=== PATIENT | female | born 1995 | race Caucasian/White ===

== ENCOUNTER 2018-05-01 21:13 | Inpatient (IN) | payer OTHER ==
[~2018-05-01] VITALS: Ht 170.2 cm; Wt 70.3 kg
[2018-05-01 21:44] LABS: *BILIRUBIN,URIN NEGATIVE (NEGATIVE); *BLOOD, URINE 1+ (NEGATIVE); *CLARITY,URINE SLIGHTLY CLOUDY (CLEAR); *COLOR,URINE YELLOW (YELLOW); *KETONES,URINE NEGATIVE (NEGATIVE); *PROTEIN,URINE 1+ (NEGATIVE); LEUKOCYTE ESTERASE ,URINE NEGATIVE (NEGATIVE); NITRITE, URINE NEGATIVE (NEGATIVE); UGLUCOSE NEGATIVE (NEGATIVE)
[2018-05-01] MEDS ORDERED: MORPHINE SULFATE 2 MG/1 ML DISP.SYRIN IV ONE (21:45)
[2018-05-01] MEDS ORDERED: MORPHINE SULFATE 4 MG/1 ML DISP.SYRIN ONE (21:49)
[2018-05-01 21:53] LABS: BACTERIA,URINE FEW /HPF (NONE SEEN); SQUAMOUS EPITHELIAL CELL,UR FEW /HPF (NONE SEEN); WBC,URINE 0-3 /HPF (0-3)
[2018-05-01 22:03] LABS: BASOPHILS % (AUTO) 0.4 % (0.0-2.0); EOSINOPHILS # (AUTO) 0.1 K/uL (0.0-0.7); EOSINOPHILS % (AUTO) 0.9 % (0.0-7.0); HEMATOCRIT 34.2 % (31.2-41.9); HEMOGLOBIN 11.8 g/dL (10.9-14.3); LYMPHOCYTES # (AUTO) 1.9 K/uL (20.0-40.0); LYMPHOCYTES % (AUTO) 14.7 % (20.5-51.5); MEAN CORPUSCULAR HEMOGLOBIN 33.2 uug (24.7-32.8); MEAN CORPUSCULAR HGB CONC 35 g/dL (32.3-35.6); MEAN CORPUSCULAR VOLUME 96.2 fL (75.5-95.3); MONOCYTES # (AUTO) 1.2 K/uL (2.0-10.0); MONOCYTES % (AUTO) 9.3 % (0.0-11.0); NEUTROPHILS # (AUTO) 9.7 K/uL (1.8-8.9); NEUTROPHILS % (AUTO) 74.7 % (38.5-71.5); PLATELET COUNT (AUTO) 241 K/uL (179-408); RED BLOOD CELL COUNT(AUTO) 3.56 MIL/uL (3.63-4.92)
--- NOTE | 2018-05-01 22:15 | NUR ---
Ultrasound at bedside.
[2018-05-01 22:16] LABS: CREATININE 1.1 mg/dL (0.6-1.3); POTASSIUM 3.4 mmol/L (3.5-5.1)
[2018-05-01 22:22] LABS: BILIRUBIN,DIRECT 0.1 mg/dL (0.0-0.2); BILIRUBIN,TOTAL 0.4 mg/dL (0.2-1.0); TOTAL PROTEIN, SERUM 7.4 g/dL (6.4-8.2)
--- NOTE | 2018-05-01 23:22 | NUR ---
Female window and door installer accompanied female patient for pelvic exam.
--- NOTE | 2018-05-01 23:23 | NUR ---
Dr. Renee speaking to Dr. Issa
[2018-05-01] MEDS ORDERED: CEFTRIAXONE 2 G in IV DEXTROSE 5% 100 ML IV ONE (23:30)
[2018-05-01] MEDS ORDERED: METRONIDAZOLE 500 MG/NS 100 ML PIGGYBACK IV ONE (23:30)
[2018-05-01] MEDS ORDERED: CEFTRIAXONE 1 G VIAL ONE (23:36)
--- NOTE | 2018-05-02 00:06 | NUR ---
Dr. Renee speaking to Kristina Ledesma ([facility])
[2018-05-02] MEDS ORDERED: METRONIDAZOLE 500 MG/NS 100ML 100 ML IV ONE ×2 (00:36→01:25)
[2018-05-02] MEDS ORDERED: IV NS 1000 ML 1,000 ML IV PRN (00:45)
[2018-05-02] MEDS ORDERED: ZOLPIDEM 5 MG TABLET PO PRN (00:45)
[2018-05-02] MEDS ORDERED: CEFTRIAXONE 1 G in IV DEXTROSE 5% 50 ML IV SCH ×2 (00:45→21:00)
[2018-05-02] MEDS ORDERED: ONDANSETRON 4 MG/2 ML VIAL IV PRN (00:45)
[2018-05-02] MEDS ORDERED: Z GUARD REMEDY PASTE 57 GM TUBE TOP PRN (00:45)
[2018-05-02] MEDS ORDERED: MAGNESIUM HYDROXIDE 30 ML LIQUID UDC PO PRN (00:45)
[2018-05-02] MEDS ORDERED: ACETAMINOPHEN 325 MG TABLET PO PRN (00:45)
[2018-05-02] MEDS ORDERED: MORPHINE SULFATE 2 MG/1 ML DISP.SYRIN IV PRN (01:15)
--- NOTE | 2018-05-02 01:21 | NUR ---
Pt. admitted to Med/Surg , under care of Kristina Ledesma NP. Diagnosis: Endometritis. Belongs List completed Report given to Campbell DEGROOT.
--- NOTE | 2018-05-02 01:40 | NUR ---
Nursing Note: Admitted as telemetry patient. Pt showing sinus rhythm of 68 on monitor. No sob noted at this time. No complaints of pain at this time. No abdominal distention noted at this time. Pt admitted for endometritis. No adverse reactions to antibiotics given in the ER. Pt oriented to room. Bed in low and locked position. Call light in reach. Continue to monitor.
[2018-05-02] MEDS ORDERED: POTASSIUM CHLORIDE 20 MEQ TAB.PRT.SR PO ONE (01:45)
[2018-05-02 01:49] VITALS: BP 108/68
[2018-05-02] MEDS ORDERED: LEVOFLOXACIN 500 MG/D5W 100 ML ONE (01:58)
[2018-05-02] MEDS ORDERED: LEVOFLOXACIN 500 MG/D5W 500 MG in PREMIXED 1 EACH IV SCH (02:00)
[2018-05-02] MEDS ORDERED: MORPHINE SULFATE 4 MG/1 ML DISP.SYRIN IV PRN (02:18)
[2018-05-02] MEDS: HYDROCODONE/APAP 5-325MG TABLET PO PRN ×2 (04:17→08:36)
[2018-05-02 05:16] VITALS: BP 115/64
[2018-05-02] MEDS: METRONIDAZOLE 500 MG/NS 100ML 500 MG in PREMIXED 1 EACH IV SCH ×2 (05:29→14:53)
[2018-05-02 06:03] LABS: BASOPHILS % (AUTO) 0.4 % (0.0-2.0); EOSINOPHILS # (AUTO) 0.1 K/uL (0.0-0.7); EOSINOPHILS % (AUTO) 1.1 % (0.0-7.0); HEMATOCRIT 31.9 % (31.2-41.9); HEMOGLOBIN 10.9 g/dL (10.9-14.3); LYMPHOCYTES # (AUTO) 1.5 K/uL (20.0-40.0); LYMPHOCYTES % (AUTO) 16.6 % (20.5-51.5); MEAN CORPUSCULAR HEMOGLOBIN 32.5 uug (24.7-32.8); MEAN CORPUSCULAR HGB CONC 34 g/dL (32.3-35.6); MEAN CORPUSCULAR VOLUME 95.3 fL (75.5-95.3); MONOCYTES # (AUTO) 0.8 K/uL (2.0-10.0); MONOCYTES % (AUTO) 9.5 % (0.0-11.0); NEUTROPHILS # (AUTO) 6.4 K/uL (1.8-8.9); NEUTROPHILS % (AUTO) 72.4 % (38.5-71.5); PLATELET COUNT (AUTO) 218 K/uL (179-408); RED BLOOD CELL COUNT(AUTO) 3.34 MIL/uL (3.63-4.92); WHITE BLOOD COUNT (AUTO) 8.8 K/uL (3.8-11.8)
[2018-05-02 06:15] LABS: MAGNESIUM 1.6 mg/dL (1.8-2.4); PHOSPHOROUS 3.7 mg/dL (2.5-4.9); POTASSIUM 3.6 mmol/L (3.5-5.1)
--- NOTE | 2018-05-02 06:57 | NUR ---
Nursing Note: Pt resting comfortably in bed. No respiratory distress. Pt verbalized that she was unable to go to sleep. Will endorse to oncoming RN. No complaints of pain at this time. Bed in low and locked position. Call light in reach. Continue to monitor.
--- NOTE | 2018-05-02 07:20 | NUR ---
RECEIVED REPORT FROM NEWCOMER HOSTESS NURSE, PATIENT IN BED AWAKE, REPORTS NOT BEING ABLE TO SLEEP ALL NIGHT. NO EVIDENCE OF DISTRESS NOTED AT THIS TIME, BED IN LOW POSITION, SIDE RAILS UP X2.
[2018-05-02] MEDS ORDERED: diphenhydrAMINE 50 MG/1 ML VIAL IV PRN (11:30)
[2018-05-02] MEDS: MAGNESIUM SULFATE/D5W 100 ML IV SCH ×2 (11:35→13:48)
[2018-05-02 11:36] VITALS: BP 108/67
--- NOTE | 2018-05-02 14:00 | NUR ---
PATIENT IS ANXIOUS AND WANTS TO KNOW WHEN DIGITAL IMAGING SPECIALIST WILL BE COMING. STATING THAT SHE CAN GO SEE HER OWN DOCTOR TOMORROW IF AN OB IS NOT COMING.
[2018-05-02 15:38] VITALS: BP 106/62
--- NOTE | 2018-05-02 16:55 | NUR ---
PATIENT SIGNED AMA FORM AFTER BEING GIVEN RISK FACTORS FOR LEAVING. PATIENT REPORTS THAT SHE UNDERSTANDS AND SIGNED THE FORM. IV REMOVED.
== END 2018-05-02 17:10 | disposition left against medical advice (07) | DRG 532 ==
LOC: ER 21:16 → MED 05-02 00:53 → TELE 05-02 01:22
PROVIDERS: ADMIT Registered Nurse; ATTEND Registered Nurse
DX: N80.9 Endometriosis, unspecified (principal); E83.42 Hypomagnesemia; D72.829 Elevated white blood cell count, unspecified; E87.6 Hypokalemia; R94.31 Abnormal electrocardiogram [ECG] [EKG]; I49.3 Ventricular premature depolarization; Z32.01 Encounter for pregnancy test, result positive
CPT/HCPCS: 36415; 76856; 83605; 83735; 84100; 84703; 85025; 87040; 93005; A4663; J0696; J1200; J1956; J2270; J3475; J3490; J7030; J7060